=== PATIENT | male | born 2005 | race Caucasian/White ===

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

== ENCOUNTER 2025-02-19 16:31 | Emergency (ER) | payer OTHER ==
[~2025-02-19] VITALS: Ht 185.4 cm; Wt 69.9 kg
[2025-02-19] MEDS ORDERED: Acetaminophen/Oxycodone 5 MG/325 MG TABLET PO ONE (16:55)
[2025-02-19] MEDS ORDERED: CYCLOBENZAPRINE10 MG PO (16:59)
[2025-02-19] MEDS ORDERED: MELOXICAM15 MG PO (16:59)
== END 2025-02-19 17:32 | disposition home or self-care (01) ==
LOC: ED 16:31
DX: M54.50 Low back pain, unspecified (principal); X50.0XXA Overexertion from strenuous movement or load, initial encounter; Y93.89 Activity, other specified; Y92.89 Other specified places as the place of occurrence of the external cause; Y99.8 Other external cause status

== ENCOUNTER 2025-06-05 07:40 | Emergency (ER) | payer OTHER ==
[~2025-06-05] VITALS: Ht 187.9 cm; Wt 72.6 kg
[~2025-06-05 07:40] MED LIST changes: +CYCLOBENZAPRINE10 MG PO; +MELOXICAM15 MG PO
[2025-06-05] MEDS ORDERED: IOHEXOL 300 MG/ML 100 ML VIAL IV ONE (08:25)
[2025-06-05] MEDS ORDERED: IOHEXOL 300 MG/ML 100 ML VIAL ONE (08:45)
[2025-06-05] MEDS ORDERED: ACETAMINOPHEN 325 MG TAB PO ONE (08:50)
[2025-06-05 08:53] LABS: BASO # 0.0 10*3/uL (0.0-0.1); BASO % 0.4 % (0.0-1.0); EOS # 0.0 10*3/uL (0.0-0.4); EOS % 0.7 % (1.0-4.0); MEAN CELL VOLUME 92.5 fl (80.0-94.0); MEAN CORPUSCULAR HGB 31.3 pg (27.0-31.0); MEAN PLATELET VOLUME 10.4 fl (9.6-12.3); MONO # 0.6 10*3/uL (0.1-1.0); MONO % 10.5 % (3.0-9.0); NEUT # 3.1 10*3/uL (2.3-7.9); NEUT % 56.1 % (47.0-73.0); NUCLEATED RED BLOOD CELL 0.0 % (0.0-0.0); NUCLEATED RED BLOOD CELL 0.0 10*3/uL (0.0-0.0); PLATELET COUNT AUTOMATED 148 10*3/uL (130-400); RED CELL DISTRI WIDTH 12.6 % (0-14.5)
[2025-06-05 10:07] LABS: BUN 16 mg/dl (9-23)
== END 2025-06-05 10:54 | disposition home or self-care (01) ==
LOC: ED 07:40
PROVIDERS: Student in an Organized Health Care Education/Training Program
DX: S30.13XA Contusion of flank (latus) region, initial encounter (principal); J45.909 Unspecified asthma, uncomplicated; W19.XXXA Unspecified fall, initial encounter; Y93.89 Activity, other specified; Y92.89 Other specified places as the place of occurrence of the external cause; Y99.8 Other external cause status